=== PATIENT | male | born 1955 | race Caucasian/White ===

== ENCOUNTER 2025-04-10 23:00 | Observation (INO) | payer MEDICARE, SELFPAY ==
--- OUTSIDE RECORDS SUMMARY | 2003-09-28 11:15 | XMS_ITS | Continuity of Care Document ---
Author Organization [facility] Address [id number] [place] [address] [address] [place] [address] Phone Care Team Providers Care Movie Actor Name Role Phone Carr OD, Jameson Unavailable Unavailable Advance Directives Directive Yes / No Effective Date File Name No Information Encounters Encounter Description Practice Location Reason(s) For Visit Diagnoses Date Provider Providers Copied on Encounter [facility], [address], [place], [place], [id number], [place] tel:[phone] No Information Mar-0 9-200 4 Carr OD Jameson. [address] , [address], [place], [address], [place]. tel:[phone] Family History Family Member Type Diagnosis Age At Onset No Information Payers Payer name Insurance type Covered republican ID Authoriza tion(s) No Information Social History Type Description Quantity Date Captured Comments Sex Male Smoking Status No Information Chief Complaint And Reason For Visit No Information Reason For Referral Reason For Referral No Information History Of Present Illness Encounter Date Complaint History Of Prese nt Illness No Information Functional Status Date Functional Assessmen t No Information Instructions Date Instruction Additional Infor mation No Information Assessments Type Assessment Date No Information Patient Care Teams Name Effective Dates (start - stop) Status Members No Information
--- NOTE | ~2025-04-10 | XR_ITS ---
Examination: XR chest 1V portable Clinical History: CONGESTION/CONFUSION Comparison: None Technique: Portable AP Findings: Heart size normal. Patchy opacity left base. No acute bony abnormality. IMPRESSION: 1. Left basilar atelectasis and/or airspace disease. Reviewed, dictated and finalized at location R.
[2025-04-10 23:10] VITALS: BP 131/51; PULSE 116; RESP 18; TEMP 39; O2SAT 93
--- NOTE | 2025-04-10 23:29 | ECG_ITS ---
Test Date: 2025-04-11 00:51:44 Measurements Intervals [place] Rate: 105 P: 79 CA: 165 QRS: 252 QRSD: 141 T: 19 QT: 352 QTc: 467 Interpretive Statements SINUS TACHYCARDIA POSSIBLE LEFT ATRIAL ENLARGEMENT [-0.1mV P-WAVE IN V1/V2] RIGHT AXIS DEVIATION [QRS AXIS > 100] RIGHT BUNDLE BRANCH BLOCK [120+ ms QRS DURATION, UPRIGHT V1, 40+ ms S IN I/aVL/V4/V5/V6] CONSIDER PREVIOUS INFERIOR INFARCTION ABNORMAL ECG No previous ECG available for comparison Electronically Signed On 04-11-2025 08:27:27 CDT by Alan Aiken M.D.
[2025-04-11] VITALS (13 sets, daily range): BP systolic 131–175; BP diastolic 64–94; PULSE 88–115; RESP 14–21; TEMP 36.6–37.4; O2SAT 93–96; BMI 22.8
[2025-04-11 00:33] LABS: Hematocrit 37.0 % (42.0-52.0); Hemoglobin 12.0 g/dL (14.0-18.0); Immature Granulocyte Percent A 0.6 % (0-0.5); Lymphocytes Absolute Auto 1.18 K/mm3 (0.9-3.2); Mean Corpuscular HGB Conc 32.4 g/dl (32-36); Mean Corpuscular Hemoglobin 28.4 pg (26-34); Mean Corpuscular Volume 87.7 fl (80-100); Nucleated Red Blood Cells Absolute Auto 0.000 K/mm3 (0.0-0.012); Nucleated Red Blood Cells Perc 0.0 % (0.0-0.2); Platelet Count Result 181 k/mm3 (150-375); Red Blood Count 4.22 M/mm3 (4.6-6.20); White Blood Count 12.1 K/mm3 (4.5-10.0)
[2025-04-11 00:41] LABS: Add Urine Microscopic? YES; Appearance Urine Clear (Clear); Glucose Urine UA 3+ mg/dL (Negative); Leukocyte Esterase Ur Negative LEU/UL (Negative); Nitrate Urine Negative (Negative); Non Pathogenic Casts 0-2; Specific Grav Ur 1.033 (1.001-1.035)
[2025-04-11 00:43] LABS: Alanine Aminotransferase 18 U/L (6-50); Albumin Level 3.9 g/dL (3.5-5.1); Alkaline Phosphatase 79 U/L (38-126); Anion Gap 9 mmol/L (4-12); Aspartate Amino Transferase 20 U/L (17-59); Bilirubin,Total 1.4 mg/dL (0.2-1.3); Blood Urea Nitrogen 22 mg/dL (9-20); Calcium 8.6 mg/dL (8.4-10.2); Carbon Dioxide 24 mmol/L (22-30); Chloride 100 mmol/L (98-107); Estimated CRCL calculation 63 ml/min; Estimated Glomerular Filt Rate > 60; Glucose 268 mg/dL (65-110); Potassium 4.0 mmol/L (3.4-5.0); Sodium 133 mmol/L (137-145); Total Protein 7.2 g/dL (6.3-8.2)
[2025-04-11 00:58] LABS: INR 1.2; Prothrombin Time 14.9 Seconds (11.1-14.7)
[2025-04-11 00:59] LABS: Partial Thromboplastin Time 33.6 Seconds (22.3-36.8)
[2025-04-11] MEDS: cefTRIAXone 2 GM in SODIUM CHLORIDE 0.9% IV 100 ML 200 ML IVPB (04:28)
[2025-04-11] MEDS: AZITHROMYCIN 500 MG TABLET PO (04:28)
[2025-04-11] MEDS: LACTATED RINGERS 1,000 ML 999 ML IV CONT (04:29)
[2025-04-11 05:03] LABS: Influenza A QL RT-PCR Negative (Negative); Influenza B QL RT-PCR Negative (Negative); RSV RNA, RT-PCR Negative (Negative); SARS-CoV-2 RNA PCR Negative (Negative)
--- NOTE | 2025-04-11 05:49 | ED_ITS ---
HPI - Fever General Chief Complaint: Fever Stated Complaint: fever, recent cold, confused? Time Seen by Provider: 04/11/25 03:49 History of Present Illness HPI Narrative: Patient presents here with generalized weakness, he had had a few days of congestion, cough with phlegm, but has generally been getting worse, now with fevers and chills and generalized weakness. Related Data Allergies Allergy/AdvReac Type Severity Reaction Status Date / Time No Known Allergies Allergy Unknown Verified 04/10/25 23:16 Review of Systems 2 Review of Systems: All systems reviewed & are unremarkable except as noted in HPI and below Exam 2 Narrative: EXAMINATION OF ORGAN SYSTEMS/BODY AREAS: Constitutional: Vital signs per nursing GENERAL: Appears tired but not ill HEAD: Normal with no signs of head trauma. EYES: EOMI, conjunctiva normal ENT: Hearing grossly intact LUNGS: Nonlabored breathing. Clear to auscultation bilaterally with intermittent cough HEART: [Regular rate and rhythm] ABD: [Soft], [nontender to palpation] EXT: Normal range of motion SKIN: [No rashes or lesions.] NEURO: [Alert and oriented x 3. No gross focal sensory or strength deficits.] PSYCH: Normal affect Course Vital Signs Vital signs: Vital Signs Temperature 102.2 F H 04/10/25 23:10 Pulse Rate 116 H 04/10/25 23:10 Respiratory Rate 18 04/10/25 23:10 Blood Pressure 131/51 L 04/10/25 23:10 Pulse Oximetry 93 04/10/25 23:10 Oxygen Delivery Room Air 04/10/25 23:10 Temperature 102.2 F H 04/10/25 23:10 Pulse Rate 116 H 04/10/25 23:10 Respiratory Rate 18 04/10/25 23:10 Blood Pressure 131/51 L 04/10/25 23:10 Pulse Oximetry 93 04/10/25 23:10 Oxygen Delivery Room Air 04/10/25 23:10 MDM - Fever MDM Narrative Medical decision making narrative: Patient presenting here with congestion and cough that has been worsening over last few days, now with productive phlegm, fevers and generalized weakness. He is well-appearing on exam just tired, lungs are clear he is tachycardic and febrile, is treated for that here, started on fluids and antibiotics. Chest x-ray independent station does show some streaky opacities more in the left lung. He does feel better however still weak enough that he needs some assistance to go to the bathroom so at this point I do feel he would benefit from admission, patient family agreeable to plan, discussed with hospitalist for admission. Lab Data 04/11/25 00:18 04/11/25 00:18 Labs: Lab Results 04/11/25 04/11/25 04/11/25 Range/Units 00:18 00:27 04:16 WBC 12.1 H (4.5-10.0) K/mm3 RBC 4.22 L (4.6-6.20) M/mm3 Hgb 12.0 L (14.0-18.0) g/dL Hct 37.0 L (42.0-52.0) % MCV 87.7 (80-100) fl MCH 28.4 (26-34) pg MCHC 32.4 (32-36) g/dl RDW 12.8 (11.5-14.5) % Plt Count 181 (150-375) k/mm3 MPV 10.4 (7.4-10.4) fl Immature Gran % (Auto) 0.6 H (0-0.5) % Neut % (Auto) 80.9 H (45.5-73.1) % Lymph % (Auto) 9.7 L (18.3-44.2) % [place] % (Auto) 8.6 H (2.6-8.5) % Eos % (Auto) 0.0 (0-4.4) % Baso % (Auto) 0.2 (0.2-1.2) % Lymph # (Auto) 1.18 (0.9-3.2) K/mm3 [place] # (Auto) 1.0 H (0.1-0.6) K/mm3 Eos # (Auto) 0.0 (0-0.3) K/mm3 Baso # (Auto) 0.0 (0.0-0.1) K/mm3 Abs Immat Gran (auto) 0.07 H (0.00-0.031) K/mm3 Absolute Neuts (auto) 9.8 H (1.3-6.7) K/mm3 Absolute Nucleated RBC 0.000 (0.0-0.012) K/mm3 Nucleated RBC % 0.0 (0.0-0.2) % PT 14.9 H (11.1-14.7) Seconds INR 1.2 APTT 33.6 (22.3-36.8) Seconds Sodium 133 L (137-145) mmol/L Potassium 4.0 (3.4-5.0) mmol/L Chloride 100 (98-107) mmol/L Carbon Dioxide 24 (22-30) mmol/L Anion Gap 9 (4-12) mmol/L BUN 22 H (9-20) mg/dL Creatinine 1.03 (0.7-1.3) mg/dL Estim Creat Clear Calc 63 ml/min Estimated GFR > 60 (59 - ) Glucose 268 H (65-110) mg/dL Lactic Acid 0.9 (0.7-2.0) mmol/L Calcium 8.6 (8.4-10.2) mg/dL Total Bilirubin 1.4 H (0.2-1.3) mg/dL AST 20 (17-59) U/L ALT 18 (6-50) U/L Alkaline Phosphatase 79 (38-126) U/L Total Protein 7.2 (6.3-8.2) g/dL Albumin 3.9 (3.5-5.1) g/dL Urine Color Yellow (Yellow) Urine Appearance Clear (Clear) Urine pH 5.5 (5.0-9.0) Ur Specific [place] 1.033 (1.001-1.035) Urine Protein 2+ H (Negative) mg/dL Urine Glucose (UA) 3+ H (Negative) mg/dL Urine Ketones 1+ H (Negative) mg/dL Ur Blood (Man) Negative (Negative) Urine Nitrate Negative (Negative) Urine Bilirubin Negative (Negative) Urine Urobilinogen 1.0 (<2.0) mg/dL Leukocyte Esterase Rfl Negative (Negative) MARCELO/UL Urine RBC 0-2 (0-2) /hpf Urine WBC 0-5 (0-3) /hpf Ur Squamous Epith Cells None seen (Few) /hpf Urine Bacteria None seen /hpf Urine Casts 0-2 Influenza A (RT-PCR) Negative (Negative) Influenza B (RT-PCR) Negative (Negative) RSV (RT-PCR) Negative (Negative) SARS-CoV-2 RNA (RT-PCR) Negative (Negative) Critical Care Time Critical Care Time Critical Care Time: Yes Total Critical Care Time: 31 Discharge Plan Discharge Clinical Impression: Community acquired pneumonia, Sepsis Patient Disposition: Still a Patient Condition: Stable Patient Language: Luxembourger Follow-up/Referrals: Jameson Ku [Other]
[2025-04-11] MEDS: ACETAMINOPHEN 500 MG TABLET 1000 MG PO (06:16)
--- NOTE | 2025-04-11 07:01 | P.HP_ITS ---
H&P: HPI History of Present Illness Date/Time: 04/11/25 07:01 Chief Complaint: weakness, cough Narrative: Patient is a 70 yo male with past medical history of T2DM, hypertension, hyperlipidemia who presented to the ED with generalized weakness, congestion, cough, fever and chills. Patient states his symptoms began about 15 days ago. States he felt like he was infected with a virus from his grandchildren. He tried conservative management however symptoms never improved. Over the last couple days he has become increasingly weak with continued cough. He is able to ambulate independently. He did have a mechanical fall a couple of days ago where he slipped and landed on his back. Denied head injury or loss of consciousness. Denies any residual pain from this. Work-up from ED reviewed: WBC 12.1, Hgb 12.0, Na 133, BUN 22, glucose 268, total bili 1.4, LA WNL. UA with 2+ protein, 3+ glucose, 1+ ketones. Flu/RSV/COVID negative. CXR personally interpreted with blunting of the left costophrenic angle, mild perihilar congestion. Patient meeting SIRS criteria with fever, leukocytosis, tachycardia. Received 1 L IV fluid bolus and was started on Rocephin and azithromycin. He was admitted to medical floor for further management. Review of Systems Review of Systems: All systems reviewed & are unremarkable except as noted in HPI and below PMFSH Past Medical History Medical History (Updated 04/11/25 @ 10:40 by AIDAN Bee) Sleep apnea Hypertension Hyperlipidemia Type 2 diabetes mellitus Surgical History Surgical History (Updated 04/11/25 @ 10:39 by AIDAN Bee) History of cholecystectomy H/O hernia repair Family History Family History Mother Cancer Father Rheumatic heart disease Social History Social History Smoking status: Former smoker Second hand tobacco smoke exposure: No Alcohol intake: current Drinks per week: 3 Substance use: never Substance use type: does not use Lack of Transportation: No Lack of Food: Never True Current Housing: I Have Housing Concerned About Future Housing: No Difficulty Paying Gas/Electric Bills: No Difficulty Paying for Meds: No Currently Unemployed: No Education: High School Diploma/GED Difficulty w/ Childcare or Family Care: No Spiritual care concerns: No Meds Home Medications and Allergies Home Medications ?Medication ?Instructions ?Recorded ?Confirmed ?Type atorvastatin 20 mg tablet (Lipitor) 20 mg PO .nightly 04/11/25 04/11/25 History insulin glargine 100 unit/mL 25 unit subcut .nightly 0 04/11/25 04/11/25 History subcutaneous solution (Lantus U-100 Insulin) lisinopril 10 mg tablet 10 mg PO .nightly 04/11/25 0 04/11/25 History metformin 500 mg tablet,extended 1,500 mg PO .nightly 04/11/25 04/11/25 History release 24 hr (Glucophage XR) metoprolol tartrate 50 mg tablet 50 mg PO .nightly 04/11/25 History primidone 125 mg tablet 75 mg PO HS 04/11/25 5 History tadalafil 5 mg tablet (Cialis) 5 mg PO .nightly 04/11/25 History Allergies Allergy/AdvReac Type Severity Reaction Status Date / Time No Known Allergies Allergy Unknown Verified 04/10/25 23:16 Vital Signs Vital Signs - 24 hr 04/10/25 23:10 04/11/25 04:16 04/11/25 04:30 Temperature 102.2 F H Pulse Rate 116 H 94 89 Respiratory Rate 18 15 18 Blood Pressure 131/51 L Pulse Oximetry 93 95 95 Oxygen Delivery Room Air 04/11/25 04:31 04/11/25 04:45 04/11/25 05:04 Temperature Pulse Rate 93 91 92 Respiratory Rate 18 19 21 H Blood Pressure 140/66 Pulse Oximetry 96 96 95 Oxygen Delivery 04/11/25 05:15 04/11/25 05:16 04/11/25 05:30 Temperature Pulse Rate 106 H 100 94 Respiratory Rate 21 H 14 15 Blood Pressure 164/85 H Pulse Oximetry 94 96 95 Oxygen Delivery 04/11/25 05:31 04/11/25 06:37 Temperature 97.8 F Pulse Rate 95 92 Respiratory Rate 16 16 Blood Pressure 149/73 H 134/64 Pulse Oximetry 94 96 Oxygen Delivery Exam Narrative: General: mildly ill-appearing, diaphoretic Eyes: EOMI ENT: neck supple, +congestion Cardiovascular: Regular rate and rhythm Respiratory: Clear to auscultation, respirations even and unlabored on RA Gastrointestinal: Soft, non tender Genitourinary: no suprapubic tenderness Musculoskeletal: No edema Skin: warm, dry Neuro: Alert. Psych: Mood appropriate H&P: Results Labs Labs: Short CBC 04/11/25 Range/Units 00:18 WBC 12.1 H (4.5-10.0) K/mm3 Hgb 12.0 L (14.0-18.0) g/dL Hct 37.0 L (42.0-52.0) % Plt Count 181 (150-375) k/mm3 BMP 04/11/25 00:18 Sodium 133 L Potassium 4.0 Chloride 100 Carbon Dioxide 24 BUN 22 H Creatinine 1.03 Glucose 268 H Calcium 8.6 Liver Function 04/11/25 Range/Units 00:18 Total Bilirubin 1.4 H (0.2-1.3) mg/dL AST 20 (17-59) U/L ALT 18 (6-50) U/L Alkaline Phosphatase 79 (38-126) U/L Albumin 3.9 (3.5-5.1) g/dL Urine 04/11/25 Range/Units 00:27 Urine Color Yellow (Yellow) Urine Appearance Clear (Clear) Urine pH 5.5 (5.0-9.0) Ur Specific [place] 1.033 (1.001-1.035) Urine Protein 2+ H (Negative) mg/dL Urine Glucose (UA) 3+ H (Negative) mg/dL Assessment and Plan Assessment and plan (1) Sepsis: Code(s): A41.9 - Sepsis, unspecified organism Status: Acute Assessment and Plan: - sepsis present on admission as evidenced by tachycardia, tachypnea, leukocytosis,T max 102.2, WBC 12 - CXR personally interpreted with blunting of the left costophrenic angle, mild perihilar congestion - UA negative - LA WNL, hemodynamically stable - 1L IV fluid bolus administered in ED. - suspected source: CAP, management as below - continue antibiotics, trend inflammatory markers. BCx pending. - overall improving on admission (2) Community acquired pneumonia: Code(s): J18.9 - Pneumonia, unspecified organism Status: Acute Assessment and Plan: - presented with cough, congestion, fever - CXR personally interpreted with blunting of the left costophrenic angle, mild perihilar congestion - WBC 12, T max 102.2 - no hypoxia - continue Rocephin/azithromycin - procal, BCx, urine antigens, sputum culture, MRSA DNA pending (3) Fall: Code(s): W19.XXXA - Unspecified fall, initial encounter Status: Acute Assessment and Plan: - reported mechanical fall slipping and falling on his back -denied head injury or loss of consciousness. No residual pain -reported ongoing weakness -PT/OT consulted (4) Type 2 diabetes mellitus: Code(s): E11.9 - Type 2 diabetes mellitus without complications Status: Acute Assessment and Plan: - HgbA1c - 5.8 - hold home metformin - continue home Lantus at reduced dose with moderate dose SSI - POCT glucose qACHS - hypoglycemia management protocol (5) Hyperlipidemia: Code(s): E78.5 - Hyperlipidemia, unspecified Status: Acute Assessment and Plan: - continue home statin (6) Hypertension: Code(s): I10 - Essential (primary) hypertension Status: Acute Assessment and Plan: - BP 134/64 -continue home lisinopril and metoprolol (7) Sleep apnea: Code(s): G47.30 - Sleep apnea, unspecified Status: Acute Assessment and Plan: - does not wear CPAP - recommend outpatient follow-up Plan DVT prophylaxis: Lovenox Code status: full code, confirmed on admission Quality VTE Prophylaxis VTE prophylaxis: pharmacologic ordered Hospitalist MIPS Advance Care Plan I have confirmed that the patient's Advanced Care Plan is present, code status is documented, or surrogate decision maker is listed in patient medical record.: Yes Medication Reconciliation I have utilized all available resources to obtain, update and review the patients current medications (includes all prescriptions, OTC, herbals, cannabis, and nutritional supplements).: Yes The patient is not eligible for med reconciliation; the patient is in a emergent medical situation where delaying treatment would jeopardize the patients health.: No
[2025-04-11 07:41] LABS: Hemoglobin A1C 5.8 % (<5.7)
[2025-04-11 08:52] LABS: CRP 25.6 mg/dL (<1.0)
[2025-04-11 10:16] LABS: Procalcitonin 0.3 ng/mL
[2025-04-11 10:45] LABS: MRSA (PCR) NOT DETECTED (NOT DETECTE)
[2025-04-11] MEDS: ENOXAPARIN 40 MG/0.4 ML SYRINGE SUB-Q (11:48)
[2025-04-11] MEDS: INSULIN GLARGINE (*BKC) 100 UNITS/ML 15 UNITS SUB-Q (21:36)
[2025-04-11] MEDS: PRIMIDONE 25 MG TABLET 75 MG PO (21:37)
[2025-04-11] MEDS: ATORVASTATIN 20 MG TABLET PO (21:37)
[2025-04-11] MEDS: METOPROLOL TARTRATE 50 MG TAB PO (21:37)
[2025-04-11] MEDS: ACETAMINOPHEN 325 MG TABLET 650 MG PO (21:37)
[2025-04-12 04:27] VITALS: BP 141/62; PULSE 72; RESP 18; TEMP 36.9; O2SAT 97
[2025-04-12 05:48] VITALS: TEMP 37
[2025-04-12 06:37] LABS: Hematocrit 35.9 % (42.0-52.0); Hemoglobin 11.5 g/dL (14.0-18.0); Immature Granulocyte Percent A 0.5 % (0-0.5); Lymphocytes Absolute Auto 1.19 K/mm3 (0.9-3.2); Mean Corpuscular HGB Conc 32.0 g/dl (32-36); Mean Corpuscular Hemoglobin 28.4 pg (26-34); Mean Corpuscular Volume 88.6 fl (80-100); Nucleated Red Blood Cells Absolute Auto 0.000 K/mm3 (0.0-0.012); Nucleated Red Blood Cells Perc 0.0 % (0.0-0.2); Platelet Count Result 203 k/mm3 (150-375); Red Blood Count 4.05 M/mm3 (4.6-6.20); White Blood Count 8.7 K/mm3 (4.5-10.0)
[2025-04-12 07:36] LABS: Alanine Aminotransferase 15 U/L (6-50); Albumin Level 3.5 g/dL (3.5-5.1); Alkaline Phosphatase 93 U/L (38-126); Anion Gap 7 mmol/L (4-12); Aspartate Amino Transferase 21 U/L (17-59); Bilirubin,Total 1.1 mg/dL (0.2-1.3); Blood Urea Nitrogen 11 mg/dL (9-20); CRP 26.0 mg/dL (<1.0); Calcium 8.6 mg/dL (8.4-10.2); Carbon Dioxide 28 mmol/L (22-30); Chloride 99 mmol/L (98-107); Estimated CRCL calculation 83 ml/min; Estimated Glomerular Filt Rate > 60; Glucose 123 mg/dL (65-110); Potassium 3.8 mmol/L (3.4-5.0); Sodium 134 mmol/L (137-145); Total Protein 6.6 g/dL (6.3-8.2)
[2025-04-12] MEDS: cefTRIAXone 2 GM in SODIUM CHLORIDE 0.9% IV 100 ML 200 ML IVPB (08:54)
[2025-04-12] MEDS: AZITHROMYCIN 500 MG TABLET PO (08:55)
[2025-04-12] MEDS: ENOXAPARIN 40 MG/0.4 ML SYRINGE SUB-Q (08:55)
[2025-04-12] MEDS: guaiFENesin 12 HR 600 MG TABCR PO (12:32)
[2025-04-12 12:33] VITALS: BP 139/69; PULSE 87; RESP 20; TEMP 37.4; O2SAT 94
--- NOTE | 2025-04-12 12:54 | P.DS_ITS ---
DS: Admitting Diagnosis Discharge Date 04/12/25 Admitting Diagnosis - sepsis - community-acquired pneumonia DS: Discharge Diagnosis Discharge Diagnosis (1) Sepsis: Code(s): A41.9 - Sepsis, unspecified organism Status: Acute (2) Community acquired pneumonia: Code(s): J18.9 - Pneumonia, unspecified organism Status: Acute (3) Fall: Code(s): W19.XXXA - Unspecified fall, initial encounter Status: Acute (4) Sleep apnea: Code(s): G47.30 - Sleep apnea, unspecified Status: Acute (5) Hypertension: Code(s): I10 - Essential (primary) hypertension Status: Acute (6) Hyperlipidemia: Code(s): E78.5 - Hyperlipidemia, unspecified Status: Acute (7) Type 2 diabetes mellitus: Code(s): E11.9 - Type 2 diabetes mellitus without complications Status: Acute DS: Summary Hospital Course Reason for hospitalization: - sepsis - community-acquired pneumonia Hospital Course: Patient is a 70 yo male with past medical history of T2DM, hypertension, hyperlipidemia who presented to the ED with generalized weakness, congestion, cough, fever and chills. In the ED, WBC 12.1, Hgb 12.0, Na 133, BUN 22, glucose 268, total bili 1.4, LA WNL. UA with 2+ protein, 3+ glucose, 1+ ketones. Flu/RSV/COVID negative. CXR showed LLL infiltrate. Patient meeting SIRS criteria with fever, leukocytosis, tachycardia. Received 1 L IV fluid bolus and was started on Rocephin and azithromycin. He was admitted to medical floor for further management. He had significant improvement in his symptoms and never required oxygen. He remained afebrile x 24 hours and tachycardia and leukocytosis resolved. Patient did continue to have rhonchi on exam, but overall felt much better. On day of discharge, patient showered and ambulated independently. He remained alert and oriented x4. Patient requested to be discharged as he lives out of town. Discussed with patient and that blood cultures had not resulted yet which could alter antibiotic regimen or potentially require readmission. Patient expressed understanding and still wished to go home. Will follow culture data on discharge and call patient should blood or sputum culture warrant alteration in therapy. Patient was instructed to continue incentive spirometry. He will continue his home medications including home insulin regimen. He will follow-up closely with his PCP in [place] hometown. We discussed strict return precautions. Patient was discharged home in stable condition. Status at Discharge Functional status at discharge: independent ambulation Time Spent with Patient Time attestation: Total time spent providing and/or coordinating discharge services: Time spent: Greater than 30 minutes Exam Narrative: General: NAD Eyes: EOMI ENT: neck supple Cardiovascular: Regular rate and rhythm Respiratory: LLL rhonchi, productive cough noted, respirations even and unlabored on RA Gastrointestinal: Soft, non tender Genitourinary: no suprapubic tenderness Musculoskeletal: No edema Skin: warm, dry Neuro: Alert. Psych: Mood appropriate DS: Data Data Completed and Pending Completed studies during hospitalization: ITS Impressions Chest X-Ray 04/11/25 11:17 IMPRESSION: 1. Left basilar atelectasis and/or airspace disease. Labs on day of discharge: Labs from last 24 hours 04/12/25 04/12/25 04/12/25 11:09 07:34 05:48 WBC 8.7 RBC 4.05 L Hgb 11.5 L Hct 35.9 L MCV 88.6 MCH 28.4 MCHC 32.0 RDW 12.3 Plt Count 203 MPV 10.4 Immature Gran % (Auto) 0.5 Neut % (Auto) 73.8 H Lymph % (Auto) 13.7 L [place] % (Auto) 11.3 H Eos % (Auto) 0.5 Baso % (Auto) 0.2 Lymph # (Auto) 1.19 [place] # (Auto) 1.0 H Eos # (Auto) 0.0 Baso # (Auto) 0.0 Abs Immat Gran (auto) 0.04 H Absolute Neuts (auto) 6.4 Absolute Nucleated RBC 0.000 Nucleated RBC % 0.0 Sodium 134 L Potassium 3.8 Chloride 99 Carbon Dioxide 28 Anion Gap 7 BUN 11 D Creatinine 0.78 Estim Creat Clear Calc 83 Estimated GFR > 60 Glucose 123 H POC Capillary Glucose 151 H 115 H Calcium 8.6 Total Bilirubin 1.1 AST 21 ALT 15 Alkaline Phosphatase 93 C-Reactive Protein 26.0 H Total Protein 6.6 Albumin 3.5 04/11/25 04/11/25 21:32 16:33 WBC RBC Hgb Hct MCV MCH MCHC RDW Plt Count MPV Immature Gran % (Auto) Neut % (Auto) Lymph % (Auto) [place] % (Auto) Eos % (Auto) Baso % (Auto) Lymph # (Auto) [place] # (Auto) Eos # (Auto) Baso # (Auto) Abs Immat Gran (auto) Absolute Neuts (auto) Absolute Nucleated RBC Nucleated RBC % Sodium Potassium Chloride Carbon Dioxide Anion Gap BUN Creatinine Estim Creat Clear Calc Estimated GFR Glucose POC Capillary Glucose 162 H 123 H Calcium Total Bilirubin AST ALT Alkaline Phosphatase C-Reactive Protein Total Protein Albumin Discharge Plan Discharge Attending physician on discharge: Samuel Farmer Consulting providers: Gita Washington Discharging Clinician: Gita Washington Patient Disposition: Home Activity: as tolerated Diet: regular Discharge Instructions: For antibiotic regimen - you only need one more day of azithromycin (only 3 days are required to complete the treatment course). You will be discharged with 5 days of Augmentin to complete a 7-day course in addition to the antibiotics you received in the hospital. Take all medications as prescribed. Finish antibiotics if prescribed, even if you are feeling better. Your blood cultures will be followed after you discharge and we will call you if anything were to return positive. Continue to use the incentive spirometer to help open up and clear the lungs. Follow-up with your primary care provider in 3-5 days. Return to the emergency department if you develop chest pain, shortness of breath, persistent fever >100.4, confusion, loss of consciousness. Continue to take your insulin as you have been at home. Patient Instructions: Antibiotic Form, How to Use an Incentive Spirometer (DC), Bacterial Pneumonia (DC) Patient Language: Jordanian Stand Alone Forms: General Discharge Information Follow-up/Referrals: Jameson Ku [Other] - Call for Appointment Referral Note: follow-up in 3-5 days Discharge Medications: New azithromycin 500 mg Tablet 500 mg PO DAILY 1 Days Qty: 1 0RF guaifenesin [Mucus Relief ER] 600 mg Tablet Extended Release 12hr 600 mg PO Q12HR 7 Days Qty: 14 0RF amoxicillin-pot clavulanate 875-125 mg tablet 1 tablet PO Q12H Qty: 10 0RF Continued lisinopril 10 mg tablet 10 mg PO .nightly metformin [Glucophage XR] 500 mg tablet extended release 24 hr 1,500 mg PO .nightly insulin glargine [Lantus U-100 Insulin] 100 unit/mL solution 25 unit subcut .nightly metoprolol tartrate 50 mg tablet 50 mg PO .nightly atorvastatin [Lipitor] 20 mg tablet 20 mg PO .nightly primidone 125 mg tablet 75 mg PO HS tadalafil [Cialis] 5 mg tablet 5 mg PO .nightly Date of admission: 04/11/25 05:53 Primary Care Provider: Jameson Ku Admitting Provider: Moises Timmons Attending physician on admission: Moises Timmons Condition: Stable
--- NOTE | 2025-04-16 10:14 | PC.NURSE ---
Sputum cx shows routine respiratory elizabeth.
--- NOTE | 2025-04-18 07:39 | PC.NURSE ---
Blood cx show no growth.
== END 2025-04-12 13:30 | disposition home or self-care (01) ==
LOC: ANHED 04-11 05:57 → ANH3MEDSUR 04-11 06:53
PROVIDERS: Physician Assistant; Admitting Provider Internal Medicine; Emergency Provider Emergency Medicine; Visit Provider Internal Medicine
DX: A41.9 Sepsis, unspecified organism (principal); J18.9 Pneumonia, unspecified organism; J98.11 Atelectasis; I10 Essential (primary) hypertension; E78.5 Hyperlipidemia, unspecified; D72.829 Elevated white blood cell count, unspecified; R00.0 Tachycardia, unspecified; I45.10 Unspecified right bundle-branch block; R94.31 Abnormal electrocardiogram [ECG] [EKG]; E11.9 Type 2 diabetes mellitus without complications; Z79.4 Long term (current) use of insulin; Z79.84 Long term (current) use of oral hypoglycemic drugs; W19.XXXA Unspecified fall, initial encounter; G47.30 Sleep apnea, unspecified; Z91.199 Patient's noncompliance with other medical treatment and regimen due to unspecified reason; Z87.891 Personal history of nicotine dependence; Z79.899 Other long term (current) drug therapy; Z90.5 Acquired absence of kidney; Z20.822 Contact with and (suspected) exposure to COVID-19
CPT/HCPCS: 36415; 71045; 80053; 81001; 82948; 83036; 83605; 84145; 85025; 85610; 85730; 86140; 87040; 87070; 87205; 87449; 87637; 87641; 93005; 96365; 96366; 96372; 96376; 97165; 99285; A9270; G0378; J0696; J1650; J1815; J7120